=== PATIENT | male | born 1955 | race Caucasian/White ===

== ENCOUNTER 2017-04-17 08:29 | Day surgery (SDC) | payer BC ==
[2017-04-16 10:02] VITALS: BMI 25.8
[~2017-04-17 08:29] MED LIST: LACTATED RINGERS 1,000 ML IV SCH
[2017-04-17 08:47] VITALS: RESP 16
[2017-04-17] MEDS ORDERED: LIDOCAINE 1% 20 ML VIAL (10MG/ML) FOR IV START INTRADERMA ONE (08:58)
[2017-04-17] MEDS ORDERED: LIDOCAINE 1% INJ 10MG/ML (20 ML MDV) ONE (09:01)
[2017-04-17] MEDS ORDERED: PROPOFOL 10 MG/ML 20 ML VIAL IV ONE (09:01)
[2017-04-17 09:06] LABS: Glucose,Whole Blood 115 mg/dL (75-99)
[2017-04-17 09:28] VITALS: BP 130/64
--- NOTE | 2017-04-17 09:37 | P.PCN ---
Date of Procedure: 04/17/17 Preoperative Diagnosis: Postoperative Diagnosis: Procedure(s) Performed: Procedure: Colonoscopy and biopsy. Preoperative diagnosis: Screening for neoplasia. Postoperative diagnosis: 1. Couple diminutive polyps in the distal sigmoid, probably representing hyperplastic polyps, biopsy, but no large polyps or cancer. 2. Sigmoid diverticulosis with no evidence of acute diverticulitis or strictures. Preparation: HalfLytely prep. Sedation: Was provided by anesthesia. Brief clinical history: The patient is a 61-year-old male who is referred for this evaluation for screening for neoplasia. He had a prior exam more than 10 years ago. At this time, he has no abdominal complaints, bleeding or anemia. No family history of colon cancer. Procedure: With the patient on his left lateral decubitus position and after informed consent and adequate sedation, the perianal area was inspected and it did not show any fissures or fistulas. There were no masses felt on digital rectal examination. The Olympus CFQ 160L video colonoscope was then inserted in the rectum in the usual fashion and advanced to the cecum. There were several diverticular orifices seen scattered in the sigmoid with no evidence of acute diverticulitis or strictures. In the distal sigmoid there were 2 diminutive polyps consistent with hyperplastic polyps which I biopsied, but there were no large polyps or cancer. I retroflexed the endoscope in the rectum before the endoscope was withdrawn. The patient tolerated the procedure well. Plan: The patient was reassured. Will await pathology results. Discussed dietary measures. I anticipate repeating this exam in around 5 years. He will follow up with you as planned. Implants: Indications for Procedure: Operative Findings: Description of Procedure:
[2017-04-17 09:50] VITALS: PULSE 50
== END 2017-04-17 10:11 | disposition home or self-care (01) ==
LOC: ORWHC2ENDO 08:29
DX: Z12.11 Encounter for screening for malignant neoplasm of colon (principal); K63.5 Polyp of colon; K57.90 Diverticulosis of intestine, part unspecified, without perforation or abscess without bleeding; I10 Essential (primary) hypertension; E11.9 Type 2 diabetes mellitus without complications; Z79.84 Long term (current) use of oral hypoglycemic drugs; M19.90 Unspecified osteoarthritis, unspecified site; Z79.899 Other long term (current) drug therapy
CPT/HCPCS: 88305; 45380; J2001; J2704

== ENCOUNTER 2020-05-30 10:08 | Emergency (ER) | payer BC, MEDICARE ==
--- NOTE | 2020-05-30 10:13 | ED ---
Allergic Reaction HPI - General Stated complaint: Poss Allergic Reaction Time Seen by Provider: 05/30/20 10:10 - History of Present Illness Initial Comments: Patient is 64-year-old male presenting to emergency department with chief complaint of ALLERGIC reaction. Patient states this is the fourth time this has occurred in the last week. He states today he developed some swelling around the lips and went to his primary care physician where she was administered some Medrol and Benadryl. States the reaction typical starts around his mouth the lips, they swell up. States one time he also had swelling in his eyes. The most recent episode prior to this one, patient had also swelling in his lower abdominal region and groin. He states the symptoms always occur in the morning, either before or after taking his blood pressure medication. States his morning routine is otherwise not changed, he has coffee, takes his medication and eats afterwards. Patient reports she went to see the primary care physician on Friday who prescribed him an EpiPen to use in emergency. The PCP also changed his blood pressure medication. Patient was initially taking losartan with hydrochlorothiazide and amlodipine 5 mg. He was then switched to hydrochlorothiazide only in the amlodipine was increased to 10 mg. However, he continues to have angioedema. He denies any chest pain shortness of breath. - Related Data Home Medications Medication Instructions Recorded Confirmed amLODIPine [Norvasc] 10 mg PO DAILY 05/30/20 05/30/20 hydroCHLOROthiazide [Hydrodiuril] 25 mg PO DAILY 05/30/20 05/30/20 Previous Rx's Medication Instructions Recorded predniSONE 50 mg PO DAILY #5 tab 05/30/20 Allergies Allergy/AdvReac Type Severity Reaction Status Date / Time No Known Allergies Allergy Verified 05/30/20 11:13 Review of Systems ROS Statement: Those systems with pertinent positive or pertinent negative responses have been documented in the HPI. ROS Other: All systems not noted in ROS Statement are negative. Past Medical History Past Medical History: Diabetes Mellitus, Hypertension, Osteoarthritis (OA) History of Any Multi-Drug Resistant Organisms: None Reported Past Surgical History: Orthopedic Surgery Additional Past Surgical History / Comment(s): LEFT HAND SURGERY , HEEL SPURS JASMIN. Past Anesthesia/Blood Transfusion Reactions: No Reported Reaction Past Psychological History: No Psychological Hx Reported Past Alcohol Use History: Daily Additional Past Alcohol Use History / Comment(s): QUIT SMOKING 25 YRS AGO. SMOKED 1 PPD FOR APPROX 20 YEARS. DRINKS 3-4 BEERS DAILY. Past Drug Use History: Marijuana Additional Drug Use History / Comment(s): CURRENT MARIJUANA USE. - Past Family History Mother Family Medical History: No Reported History General Exam Limitations: no limitations General appearance: alert, in no apparent distress Head exam: Present: atraumatic, normocephalic, normal inspection Eye exam: Present: normal appearance, PERRL, EOMI. Absent: scleral icterus, conjunctival injection, nystagmus Pupils: Present: normal accommodation ENT exam: Present: normal exam, normal oropharynx (Mild angioedema on the lower lip and right side of the face.), mucous membranes moist, TM's normal bilaterally, normal external ear exam Neck exam: Present: normal inspection, full ROM. Absent: tenderness Respiratory exam: Present: normal lung sounds bilaterally. Absent: respiratory distress, wheezes Cardiovascular Exam: Present: regular rate, normal rhythm, normal heart sounds GI/Abdominal exam: Present: soft. Absent: distended, tenderness, guarding, rebound Extremities exam: Present: normal inspection, full ROM, normal capillary refill. Absent: tenderness Back exam: Present: normal inspection, full ROM. Absent: tenderness, CVA tenderness (R), CVA tenderness (L) Neurological exam: Present: alert, oriented X3 Psychiatric exam: Present: normal affect, normal mood Skin exam: Present: warm, dry, intact, normal color Course Vital Signs 05/30/20 10:10 Temperature 98.7 F Pulse Rate 78 Respiratory 19 Rate Blood Pressure 111/81 O2 Sat by Pulse 99 Oximetry Medical Decision Making - Medical Decision Making Patient is a 64-year-old male presenting to emergency Department with a chief complaint of an ALLERGIC reaction. On initial evaluation, patient has some angioedema around the lower lip and a right-sided face near the mouth. Patient had his blood pressure medication recently altered which could potentially cause a reaction. On reevaluation, the angioedema around the mouth continues to be improving. Patient agrees. No signs of respiratory comprise. Patient has an appointment scheduled with his primary care in an technical communication teacher as soon as possible. Patient will be discharged with a 5 day course of steroids. Strict return parameters were thoroughly discussed the patient was understanding and agreeable. Case discussed with physician. Disposition Clinical Impression: Allergic reaction, Angioedema Disposition: HOME SELF-CARE Condition: Stable Instructions (If sedation given, give patient instructions): Angioedema (ED) Additional Instructions: Date show medication as directed. Follow with her primary care physician. Return to emergency department if symptoms worsen. Prescriptions: predniSONE 50 mg PO DAILY #5 tab Is patient prescribed a controlled substance at d/c from ED?: No Referrals: Michael Felder MD [Primary Care Provider] - 1-2 days Time of Disposition: 12:12
[2020-05-30 10:18] VITALS: RESP 19; TEMP 98.7
[2020-05-30 12:43] VITALS: BP 108/64; PULSE 71
== END 2020-05-30 12:43 | disposition home or self-care (01) ==
LOC: EC 10:08
DX: T78.3XXA Angioneurotic edema, initial encounter (principal); T50.905A Adverse effect of unspecified drugs, medicaments and biological substances, initial encounter; I10 Essential (primary) hypertension; Z79.899 Other long term (current) drug therapy; Z87.891 Personal history of nicotine dependence
CPT/HCPCS: 99284

== ENCOUNTER → 2020-06-08 | Outpatient (CLI) | payer MEDICARE ==
[2020-06-09 13:55] LABS: Beef IgE 7.24 kU/L (<0.10); Beef IgE Class CLASS 3; Lettuce IgE Class CLASS 0; Pork IgE Class CLASS 2
[2020-06-09 13:56] LABS: Apple IgE Class CLASS 0; Celery IgE <0.10 kU/L (<0.10); Celery IgE Class CLASS 0; Chicken IgE Class CLASS 0; Chocolate IgE Class CLASS 0; Cow's Milk IgE Class CLASS 2; Egg White IgE <0.10 kU/L (<0.10); Peanut IgE <0.10 kU/L (<0.10); Potato IgE <0.10 kU/L (<0.10); Potato IgE Class CLASS 0; Soybean IgE 3.62 kU/L (<0.10)
[2020-06-09 13:57] LABS: Avocado Class CLASS 0; Banana IgE Class CLASS 0; Coffee IgE <0.10 kU/L (<0.10); Coffee IgE Class CLASS 0; Hazelnut IgE <0.10 kU/L (<0.10); Hazelnut IgE Class CLASS 0; Kiwi IgE <0.10 kU/L (<0.10); Kiwi IgE Class CLASS 0
== END | disposition home or self-care (01) ==
LOC: LABWHC1 13:39
PROVIDERS: ATTEND Otolaryngology
DX: L50.0 Allergic urticaria (principal)
CPT/HCPCS: 36415; 86003

== ENCOUNTER 2020-06-10 06:22 | Emergency (ER) | payer MEDICARE ==
[2020-06-10 06:30] VITALS: BP 144/75; PULSE 92; RESP 18; TEMP 98.7
[2020-06-10] MEDS ORDERED: methylPREDNISolone SOD SUCCI 125 MG/2 ML VIAL IM STA (06:40)
[2020-06-10] MEDS ORDERED: diphenhydrAMINE 50 MG/ML 1 ML VIAL IM STA (06:40)
[2020-06-10] MEDS ORDERED: FAMOTIDINE 20 MG TAB PO STA (06:40)
--- NOTE | 2020-06-10 06:45 | ED ---
General Adult HPI - General Chief complaint: Allergic Reaction Stated complaint: Swollen Lips Time Seen by Provider: 06/10/20 06:32 Source: patient, family, RN notes reviewed Mode of arrival: ambulatory Limitations: no limitations - History of Present Illness Initial comments: 64-year-old male presents to the emergency room for a chief complaint of lip swelling. Patient reports that over the past several weeks this has happened 5 times now. Patient has seen his primary care provider for this and started on steroids. He was seen here in the emergency room as well and given shots which helped with his symptoms. 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 Patient states he could feel this coming on last night and took Benadryl. When he woke up this morning it was worse so he took another half tablet of Benadryl about 2 hours ago. Patient denies any swelling of his tongue or throat. He reports these symptoms have never involved tongue or throat. No shortness of breath. Patient is not on lisinopril.Patient has no other complaints at this time including shortness of breath, chest pain, abdominal pain, nausea or vomiting, headache, or visual changes. - Related Data Home Medications Medication Instructions Recorded Confirmed amLODIPine [Norvasc] 10 mg PO DAILY 05/30/20 05/30/20 hydroCHLOROthiazide [Hydrodiuril] 25 mg PO DAILY 05/30/20 05/30/20 Previous Rx's Medication Instructions Recorded predniSONE 50 mg PO DAILY #5 tab 05/30/20 predniSONE 50 mg PO DAILY #3 tablet 06/10/20 Allergies Allergy/AdvReac Type Severity Reaction Status Date / Time No Known Allergies Allergy Verified 06/10/20 06:30 Review of Systems ROS Statement: Those systems with pertinent positive or pertinent negative responses have been documented in the HPI. ROS Other: All systems not noted in ROS Statement are negative. Past Medical History Past Medical History: Diabetes Mellitus, Hypertension, Osteoarthritis (OA) History of Any Multi-Drug Resistant Organisms: None Reported Past Surgical History: Orthopedic Surgery Additional Past Surgical History / Comment(s): LEFT HAND SURGERY , HEEL SPURS JASMIN. Past Anesthesia/Blood Transfusion Reactions: No Reported Reaction Past Psychological History: No Psychological Hx Reported Smoking Status: Never smoker Past Alcohol Use History: Daily Past Drug Use History: Marijuana - Past Family History Mother Family Medical History: No Reported History General Exam Limitations: no limitations General appearance: alert, in no apparent distress Head exam: Present: atraumatic, normocephalic, normal inspection Eye exam: Present: normal appearance, PERRL, EOMI. Absent: scleral icterus, conjunctival injection, periorbital swelling ENT exam: Present: normal exam, mucous membranes moist, normal external ear exam. Absent: normal oropharynx (Patient does have evidence of angioedema of the lips. No swelling of the tongue or throat.) Neck exam: Present: normal inspection, full ROM. Absent: tenderness, meningismus, lymphadenopathy Respiratory exam: Present: normal lung sounds bilaterally. Absent: respiratory distress, wheezes, rales, rhonchi, stridor Cardiovascular Exam: Present: regular rate, normal rhythm, normal heart sounds. Absent: systolic murmur, diastolic murmur, rubs, gallop, clicks GI/Abdominal exam: Present: soft, normal bowel sounds. Absent: distended, tenderness, guarding, rebound, rigid Neurological exam: Present: alert Skin exam: Present: warm, dry, intact, normal color. Absent: rash Course Vital Signs 06/10/20 06:26 Temperature 98.7 F Pulse Rate 92 Respiratory 18 Rate Blood Pressure 144/75 O2 Sat by Pulse 100 Oximetry Medical Decision Making - Medical Decision Making Patient given Solu-Medrol, Benadryl, Pepcid here in the emergency room. He was discharged home on a short course of steroids. He will follow up with his department head [employer] or [employer] and primary care. He will return here for any worsening symptoms. He does have an EpiPen at home. Disposition Clinical Impression: Allergic reaction, Angioedema Disposition: HOME SELF-CARE Condition: Good Instructions (If sedation given, give patient instructions): General Allergic Reaction (ED) Additional Instructions: Please take steroid as directed starting tomorrow. Please follow-up with your primary care doctor and department head [employer] or [employer]. If you have any worsening symptoms or tongue swelling or shortness of breath return immediately to the emergency room. Prescriptions: predniSONE 50 mg PO DAILY #3 tablet Is patient prescribed a controlled substance at d/c from ED?: No Referrals: Michael Felder MD [Primary Care Provider] - 1-2 days Time of Disposition: 06:46
== END 2020-06-10 07:29 | disposition home or self-care (01) ==
LOC: EC 06:22
DX: T78.3XXA Angioneurotic edema, initial encounter (principal); I10 Essential (primary) hypertension; Z79.899 Other long term (current) drug therapy
CPT/HCPCS: 99283; 96372 ×2; J1200; J2930

== ENCOUNTER 2020-09-07 15:58 | Emergency (ER) | payer MEDICARE ==
[2020-09-07 16:13] VITALS: BP 161/76; PULSE 100; TEMP 98.3
[2020-09-07] MEDS ORDERED: methylPREDNISolone SOD SUCCI 125 MG/2 ML VIAL IM ONE (16:29)
[2020-09-07] MEDS ORDERED: FAMOTIDINE 20 MG TAB PO STA (16:30)
[2020-09-07] MEDS ORDERED: diphenhydrAMINE 50 MG/ML 1 ML VIAL IM STA (16:30)
[2020-09-07 16:35] VITALS: RESP 18
--- NOTE | 2020-09-07 16:36 | ED ---
General Adult HPI - General Chief complaint: Allergic Reaction Stated complaint: allergies issues Time Seen by Provider: 09/07/20 16:14 Source: patient, RN notes reviewed Mode of arrival: ambulatory Limitations: no limitations - History of Present Illness Initial comments: 65-year-old male with a past medical history of hypertension presents to the emergency room for a chief complaint of ALLERGIC reaction. Today patient woke up with swelling around the left eye. He denies any swelling of his lips tongue or throat. He states that he took Benadryl twice today with the last dose being 9 AM or approximately 7 hours prior to arrival. He states swelling has been persistent but is not seeming to worsen. Patient reports he has had ALLERGIC reactions on and off for the past few months. States he has seen primary care and french tutor for this. Patient is ALLERGIC to milk, soy, red meats, and corn. States he may have eaten one of these as it is very hard to avoid everything.Patient has no other complaints at this time including shortness of breath, chest pain, abdominal pain, nausea or vomiting, headache, or visual changes. - Related Data Home Medications Medication Instructions Recorded Confirmed amLODIPine [Norvasc] 10 mg PO DAILY 05/30/20 05/30/20 hydroCHLOROthiazide [Hydrodiuril] 25 mg PO DAILY 05/30/20 05/30/20 Previous Rx's Medication Instructions Recorded predniSONE 50 mg PO DAILY #5 tab 05/30/20 predniSONE 50 mg PO DAILY #3 tablet 06/10/20 Famotidine [Pepcid] 20 mg PO DAILY #30 tablet 09/07/20 predniSONE 50 mg PO DAILY #4 tablet 09/07/20 Allergies Allergy/AdvReac Type Severity Reaction Status Date / Time No Known Allergies Allergy Verified 09/07/20 16:13 Review of Systems ROS Statement: Those systems with pertinent positive or pertinent negative responses have been documented in the HPI. ROS Other: All systems not noted in ROS Statement are negative. Past Medical History Past Medical History: Hypertension, Osteoarthritis (OA) History of Any Multi-Drug Resistant Organisms: None Reported Past Surgical History: Orthopedic Surgery Additional Past Surgical History / Comment(s): LEFT HAND SURGERY , HEEL SPURS JASMIN. Past Anesthesia/Blood Transfusion Reactions: No Reported Reaction Past Psychological History: No Psychological Hx Reported Smoking Status: Never smoker Past Alcohol Use History: Daily Past Drug Use History: Marijuana - Past Family History Mother Family Medical History: No Reported History General Exam Limitations: no limitations General appearance: alert Head exam: Present: atraumatic Eye exam: Present: PERRL, EOMI, periorbital swelling (Minimal left-sided periorbital edema). Absent: scleral icterus, conjunctival injection, periorbital tenderness ENT exam: Present: normal exam, normal oropharynx (No swelling of the lips tongue or throat), mucous membranes moist Neck exam: Present: normal inspection, full ROM. Absent: tenderness, meningismus, lymphadenopathy Respiratory exam: Present: normal lung sounds bilaterally. Absent: respiratory distress, wheezes Cardiovascular Exam: Present: regular rate, normal rhythm, normal heart sounds GI/Abdominal exam: Present: soft, normal bowel sounds. Absent: distended, tenderness, guarding, rebound, rigid Skin exam: Present: warm, dry, intact, normal color. Absent: rash Course Vital Signs 09/07/20 16:10 Temperature 98.3 F Pulse Rate 100 Respiratory 20 Rate Blood Pressure 161/76 O2 Sat by Pulse 99 Oximetry Medical Decision Making - Medical Decision Making Patient has been having these symptoms for months intermittently. No sling of the lips tongue or throat or shortness of breath. Patient was given IM Solu- Medrol and Benadryl as well as by mouth Pepcid. He will be discharged on a five-day course of steroids. He will follow up with his primary care physician. He will return here for any worsening symptoms. Patient does have an EpiPen at home that he can use if he developed any swelling of the throat or difficulty breathing. He is also aware to return if there are any worsening symptoms. I discussed this case with attending Dr. Regan who agrees with this assessment and treatment plan. Disposition Clinical Impression: Allergic reaction Disposition: HOME SELF-CARE Condition: Good Additional Instructions: Please take steroid as directed. He may take this starting tomorrow as he were given a dose in the emergency room. Take Pepcid as well as Benadryl. You may take Benadryl every [address] taking this. Return to the emergency room for any worsening symptoms or difficulty breathing. Follow-up with your doctor for referral to healthcare project manager or dietitian to help with your food allergies. Prescriptions: Famotidine [Pepcid] 20 mg PO DAILY #30 tablet predniSONE 50 mg PO DAILY #4 tablet Is patient prescribed a controlled substance at d/c from ED?: No Referrals: Michael Felder MD [Primary Care Provider] - 1-2 days Time of Disposition: 16:34
== END 2020-09-07 17:35 | disposition home or self-care (01) ==
LOC: EC 15:58
DX: T78.40XA Allergy, unspecified, initial encounter (principal); I10 Essential (primary) hypertension; Z79.899 Other long term (current) drug therapy; Z91.011 Allergy to milk products; Z91.048 Other nonmedicinal substance allergy status
CPT/HCPCS: 99283 ×2; 96372 ×3; J1200; J2930

== ENCOUNTER 2021-03-21 15:28 | Emergency (ER) | payer MEDICARE ==
[2021-03-21 15:44] VITALS: TEMP 98.5
[2021-03-21] MEDS ORDERED: predniSONE 20 MG TAB PO STA (16:34)
[2021-03-21] MEDS ORDERED: FAMOTIDINE 20 MG TAB PO STA (16:34)
--- NOTE | 2021-03-21 16:37 | ED ---
Allergic Reaction HPI - General Chief complaint: Allergic Reaction Stated complaint: bee sting Time Seen by Provider: 03/21/21 15:40 Source: patient Mode of arrival: ambulatory Limitations: no limitations - History of Present Illness Initial Comments: 65-year-old male with past medical history of hypertension presents emergency department after he was stung by 3 bees. He states he was in his backyard when he was stung on his right forearm, right hand and right side of face. Patient does admit to significant reactions in the past. He had immediate swelling. Denies any chest pain or shortness of breath. He did take 25 mg of Benadryl at home before coming into the emergency department. He denies anaphylactic reaction to bees. No nausea or vomiting. No other alleviating, precipitating or modifying factors - Related Data Home Medications Medication Instructions Recorded Confirmed amLODIPine [Norvasc] 10 mg PO DAILY 05/30/20 05/30/20 hydroCHLOROthiazide [Hydrodiuril] 25 mg PO DAILY 05/30/20 05/30/20 Previous Rx's Medication Instructions Recorded predniSONE 50 mg PO DAILY #5 tab 05/30/20 predniSONE 50 mg PO DAILY #3 tablet 06/10/20 Famotidine [Pepcid] 20 mg PO DAILY #30 tablet 09/07/20 predniSONE 50 mg PO DAILY #4 tablet 09/07/20 Famotidine [Pepcid] 20 mg PO DAILY #5 tablet 03/21/21 predniSONE [Deltasone] 20 mg PO BID #10 tab 03/21/21 Allergies Allergy/AdvReac Type Severity Reaction Status Date / Time bee pollen Allergy Rash/Hives Verified 03/21/21 15:44 bee venom protein (honey bee) Allergy Rash/Hives Verified 03/21/21 15:44 Review of Systems ROS Statement: Those systems with pertinent positive or pertinent negative responses have been documented in the HPI. ROS Other: All systems not noted in ROS Statement are negative. Past Medical History Past Medical History: Hypertension, Osteoarthritis (OA) History of Any Multi-Drug Resistant Organisms: None Reported Past Surgical History: Orthopedic Surgery Additional Past Surgical History / Comment(s): LEFT HAND SURGERY , HEEL SPURS JASMIN. Past Anesthesia/Blood Transfusion Reactions: No Reported Reaction Past Psychological History: No Psychological Hx Reported Smoking Status: Never smoker Past Alcohol Use History: Daily Past Drug Use History: Marijuana - Past Family History Mother Family Medical History: No Reported History General Exam Limitations: no limitations General appearance: alert, in no apparent distress Head exam: Present: atraumatic, normocephalic, normal inspection Eye exam: Present: normal appearance, PERRL, EOMI. Absent: scleral icterus, conjunctival injection, periorbital swelling ENT exam: Present: normal exam, mucous membranes moist, other (no oral swelling) Neck exam: Present: normal inspection. Absent: tenderness, meningismus, lymphadenopathy Respiratory exam: Present: normal lung sounds bilaterally. Absent: respiratory distress, wheezes, rales, rhonchi, stridor Cardiovascular Exam: Present: regular rate, normal rhythm, normal heart sounds. Absent: systolic murmur, diastolic murmur, rubs, gallop, clicks GI/Abdominal exam: Present: soft, normal bowel sounds. Absent: distended, tenderness, guarding, rebound, rigid Extremities exam: Present: normal inspection, full ROM, normal capillary refill. Absent: tenderness, pedal edema, joint swelling, calf tenderness Back exam: Present: normal inspection Neurological exam: Present: alert, oriented X3, CN II-XII intact Psychiatric exam: Present: normal affect, normal mood Skin exam: Present: warm, dry, intact, other (mild edema right face, right forearm, right dorsal hand. No retained stinger). Absent: rash Course Vital Signs 03/21/21 03/21/21 15:40 16:57 Temperature 98.5 F Pulse Rate 80 75 Respiratory 17 18 Rate Blood Pressure 143/83 125/78 O2 Sat by Pulse 98 99 Oximetry Medical Decision Making - Medical Decision Making Upon arrival patient is placed in room 17. A thorough history and physical exam is performed. Patient was given 60 mg of prednisone, 20 mg of Pepcid. Patient will be discharged home on 5 days worth of prednisone and famotidine. He is to take Benadryl every 6 hours. Return to the emergency room for any new or worsening symptoms. Patient does have EpiPen at home from previous ALLERGIC reactions to dog dander. Patient was discharged in stable condition Disposition Clinical Impression: Hymenoptera reaction Disposition: HOME SELF-CARE Condition: Stable Instructions (If sedation given, give patient instructions): Insect Bite or Sting (ED) Additional Instructions: You can take one benadryl 25 mg every 6 hours. Return to the ED for any new or worsening symptoms. Prescriptions: predniSONE [Deltasone] 20 mg PO BID #10 tab Famotidine [Pepcid] 20 mg PO DAILY #5 tablet Is patient prescribed a controlled substance at d/c from ED?: No Referrals: Michael Felder MD [Primary Care Provider] - 1-2 days Time of Disposition: 16:37
[2021-03-21 16:58] VITALS: BP 125/78; PULSE 75; RESP 18
== END 2021-03-21 16:58 | disposition home or self-care (01) ==
LOC: EC 15:28
DX: T63.441A Toxic effect of venom of bees, accidental (unintentional), initial encounter (principal); I10 Essential (primary) hypertension; Z79.899 Other long term (current) drug therapy; Z91.030 Bee allergy status
CPT/HCPCS: 99282; J7512

== ENCOUNTER → 2022-01-04 | Outpatient (CLI) | payer MEDICARE ==
--- NOTE | 2022-01-04 10:46 | US ---
EXAMINATION TYPE: US duplex aorta DATE OF EXAM: 01/04/2022 COMPARISON: NONE CLINICAL HISTORY: Z13.6 SCREENING FOR CARDIOVASCULAR DISORDERS. screening EXAM MEASUREMENTS: Abdominal Aorta: Proximal: 2.4 x 2.0cm Mid: 1.8 x 1.8cm Distal: 2.0 x 1.8cm Bifurcation: RT: 1.0 x 0.8cm LT: 0.9 x 0.8cm Calcifications noted throughout. no evidence of AAA at this time IMPRESSION: No evidence for abdominal aortic aneurysm.
== END | disposition home or self-care (01) ==
LOC: RADUSWWP 10:14
PROVIDERS: ATTEND Family Medicine
DX: Z13.6 Encounter for screening for cardiovascular disorders (principal)
CPT/HCPCS: 93979

== ENCOUNTER 2023-02-07 12:08 | Day surgery (SDC) | payer MEDICARE ==
[2023-02-05 14:31] VITALS: BMI 25.0
[~2023-02-07 12:08] MED LIST changes: +LIDOCAINE 1% (10MG/ML) FOR IV START INTRADERMA PRN
[2023-02-07 12:50] VITALS: RESP 16; TEMP 97.4
[2023-02-07] MEDS ORDERED: LIDOCAINE 2% INJ 20 MG/ML (2 ML VIAL) ONE (14:06)
[2023-02-07] MEDS ORDERED: PROPOFOL 10 MG/ML 20 ML VIAL IV ONE (14:06)
--- NOTE | 2023-02-07 14:24 | P.PCN ---
Date of Procedure: 02/07/23 Procedure(s) Performed: BRIEF HISTORY: Patient is a 67-year-old pleasant white male scheduled for an elective colonoscopy as a part of evaluation of prior history of colon polyps. Last colonoscopy was 8 years ago. PROCEDURE PERFORMED: Colonoscopy snare polypectomy. PREOPERATIVE DIAGNOSIS: History of colon polyps. IV sedation per Anesthesia. PROCEDURE: After informed consent was obtained, the patient, was brought into the endoscopy unit. IV sedation was administered by Anesthesia under continuous monitoring. Digital rectal examination was normal. Initially the Olympus CF-160 flexible video colonoscope was then inserted in the rectum, gradually advanced into the cecum without any difficulty. Careful examination was performed as the scope was gradually being withdrawn. Ileocecal valve and the appendiceal orifice were visualized and appeared normal. Prep was excellent. Mucosa of the cecum, normal. Ascending colon there was a 7 mm sessile polyp removed by snare polypectomy. Rest of the ascending colon, transverse colon, descending colon, sigmoid colon, and rectum appeared normal. Scattered sigmoid diverticulosis. Retroflexion was performed in the rectum and no lesions were seen. The patient tolerated the procedure well. IMPRESSION: 7 mm ascending colon polyp status post polypectomy Scattered sigmoid diverticulosis RECOMMENDATIONS: Findings of this examination were discussed with the patient as well as his family.He was advised to follow with the biopsy results. If the biopsy results and he will have a repeat colonoscopy in 5 years.
[2023-02-07 14:51] VITALS: BP 132/74; PULSE 70
== END 2023-02-07 15:09 | disposition home or self-care (01) ==
LOC: ORWHC2ENDO 12:08
PROVIDERS: ATTEND Internal Medicine Gastroenterology
DX: Z12.11 Encounter for screening for malignant neoplasm of colon (principal); D12.2 Benign neoplasm of ascending colon; K57.30 Diverticulosis of large intestine without perforation or abscess without bleeding; I10 Essential (primary) hypertension; F17.200 Nicotine dependence, unspecified, uncomplicated; Z86.010 Personal history of colon polyps; Z91.030 Bee allergy status; Z79.899 Other long term (current) drug therapy
CPT/HCPCS: 88305; 45385; J2704; J2001

== ENCOUNTER 2024-02-25 10:03 | Day surgery (SDC) | payer MEDICARE ==
[2024-02-24 08:37] VITALS: BMI 25.8
[~2024-02-25 10:03] MED LIST changes: -LACTATED RINGERS 1,000 ML IV SCH; +TETRACAINE 0.5% OPHTH (PF) DROPS 4 ML BTL OP PRN
[2024-02-25] MEDS: LACTATED RINGERS 1,000 ML IV ONE (10:26)
[2024-02-25] MEDS: CYCLOPENTOLATE 1% OPHTH SOLN 2 ML BTL OP PRN (10:35)
[2024-02-25] MEDS: PHENYLEPHRINE 2.5% OPHTH DRP 2ML OP PRN (10:38)
[2024-02-25] MEDS: LACTATED RINGERS 1,000 ML IV SCH (10:54)
[2024-02-25 11:04] VITALS: TEMP 97.8
[2024-02-25] MEDS ORDERED: fentaNYL (PF) 50 MCG/ML 2 ML AMP ONE (13:13)
[2024-02-25] MEDS ORDERED: MIDAZOLAM 2 MG/2 ML VIAL ONE (13:13)
[2024-02-25] MEDS: EPINEPHrine (PF) 0.3 ML in BALANCED SALT IRRIG SOLN COMB2 500 ML IRRIGATION ONE (13:28)
[2024-02-25] MEDS: TIMOLOL 0.5% OPHTH DROPS 5 ML BTL OP PRN (13:30)
[2024-02-25] MEDS: MOXIFLOXACIN HCL 0.5% DROPS 3 ML BTL OP PRN (13:30)
[2024-02-25] MEDS: BALANCED SALT IRRIG SOLN COMB2 15 ML IRRIG.SOLN INTRAOCULA ONE (13:33)
[2024-02-25] MEDS: DUOVISC KIT (GREEN BOX) INTRAOCULA ONE (13:33)
[2024-02-25] MEDS: EPINEPHrine (PF) 1 MG/ML AMP MISCELLANE ONE (13:34)
[2024-02-25] MEDS: LIDOCAINE 1% (PF) 10MG/ML VIAL MISCELLANE ONE (13:34)
[2024-02-25] MEDS: TRYPAN BLUE 0.06% SYRINGE 0.5 ML SYRINGE INTRAOCULA ONE (13:34)
--- NOTE | 2024-02-25 13:56 | P.OP ---
Date of Procedure: 02/25/24 Preoperative Diagnosis: NS & CS & POAG mild Postoperative Diagnosis: same Procedure(s) Performed: PIOL & Hydrus implantation Implants: MX60E 23.00 & Hydrus stent Anesthesia: MAC Surgeon: Keny Boykin Pathology: none sent Condition: stable Disposition: same day Indications for Procedure: blurry vision and glaucoma control Operative Findings: no complications
[2024-02-25 14:25] VITALS: BP 151/73; PULSE 73; RESP 18
--- NOTE | 2024-02-26 20:52 | OP ---
OPERATIVE REPORT DATE OF SERVICE : 02/25/2024 PROCEDURE PERFORMED: Phacoemulsification of cataract and intraocular lens implant of the left eye with a Hydrus stent implant. PREOPERATIVE DIAGNOSES: Nuclear sclerosis, cortical sclerosis, and primary open-angle glaucoma mild stage. ANESTHESIA: Topical. ESTIMATED BLOOD LOSS: Less than 5 mL. SPECIMEN TAKEN: None. NARRATIVE: After obtaining the appropriate consent, the patient was brought to the operating room. There he was placed under cardiac monitoring and prepped and draped in the usual sterile manner. He was approached from his left temporal side and at the 5 o'clock position an MVR blade was used to create a paracentesis port. Through this opening, 1% Xylocaine MPF 50:50 mix with balanced salt solution was injected into the anterior chamber. This was followed on with Trypan blue which was allowed to dwell in the eye for about 90 seconds. This was irrigated away with balanced salt solution and Viscoat was then used to stabilize the anterior chamber. At the 3 o'clock position, a 2.5 mm keratome was used to create a self-sealing corneal flap incision. A gonioprism was placed on the patient's eye and the patient was asked to rotate his head approximately 45 degrees to his right, maintaining a gaze in that general direction. An additional paracentesis which was placed tangentially at about the 6:30 position on the eye, was used to advance the Hydrus stent implantation instrument across the anterior chamber up to the nasal trabecular meshwork. Using the tip of the instrument, a small slit was placed in the trabecular meshwork and the Hydrus stent device was then advanced within the trabecular meshwork to its fullest extent and the trailing portion of the device was released and advanced slightly further into the trabecular meshwork, so only a small portion of the device remained exposed to the anterior chamber. The installing device was then removed from the anterior chamber and the patient was rotated back to the normal supine position. It was appreciated at this stage that there was some reflux of blood from the anterior angle as would typically be expected through the 3 o'clock position a cystotome was introduced to begin a continuous tear capsulorrhexis which was then completed using the Utrata forceps. Hydrodissection and hydrodelineation of the lens were accomplished with balanced salt solution. Phacoemulsification of the lens utilizing phaco chop was accomplished in 8.66 seconds at 14.7% power. Additional Xylocaine MPF was used to provide additional anesthesia to the anterior chamber and the remaining cortical material was removed from in and around the capsular bag as well as careful polishing of the posterior capsule in the capsule vacuum mode. A [employer]ch [employer] MX60E 23.0 diopter posterior chamber intraocular lens was then placed into the capsular bag without difficulty and all remaining viscoelastic was removed from in and around the intraocular lens as well as additional irrigation to remove the accumulating blood in the front chamber of the eye due to the implantation of the Hydrus stent. The eye was then brought to above normal intra-ocular pressure by a few mm to tamponade the ongoing bleeding process. All wounds were confirmed watertight. He then received 2 drops of 0.5% timolol followed by 2 drops of 0.5% moxifloxacin and was then lightly patched and shielded in the usual manner. There were no complications from the procedure. He tolerated the procedure well and was returned to outpatient recovery in good condition. MMCHAD / PRETTYN: [id number] /
== END 2024-02-25 14:23 | disposition home or self-care (01) ==
LOC: OR 10:03
PROVIDERS: ATTEND Ophthalmology
DX: H25.013 Cortical age-related cataract, bilateral (principal); H25.13 Age-related nuclear cataract, bilateral; H40.1131 Primary open-angle glaucoma, bilateral, mild stage; H47.393 Other disorders of optic disc, bilateral; H52.03 Hypermetropia, bilateral; H52.4 Presbyopia; Z83.518 Family history of other specified eye disorder; I10 Essential (primary) hypertension; Z91.030 Bee allergy status; Z91.09 Other allergy status, other than to drugs and biological substances; Z87.891 Personal history of nicotine dependence; Z79.899 Other long term (current) drug therapy
CPT/HCPCS: 66991; C1783; C1780; J2250; J0171; J3010; J2001

== ENCOUNTER 2024-03-10 08:38 | Day surgery (SDC) | payer MEDICARE ==
[2024-03-08 13:45] VITALS: BMI 26.1
[~2024-03-10 08:38] MED LIST changes: -LIDOCAINE 1% (10MG/ML) FOR IV START INTRADERMA PRN
[2024-03-10] MEDS: CYCLOPENTOLATE 1% OPHTH SOLN 2 ML BTL OP PRN (09:02)
[2024-03-10] MEDS: PHENYLEPHRINE 2.5% OPHTH DRP 2ML OP PRN (09:05)
[2024-03-10 09:08] VITALS: TEMP 97.6
[2024-03-10] MEDS: IV FLUID CONTINUATION 1,000 ML IV ONE (09:18)
[2024-03-10] MEDS: LACTATED RINGERS 1,000 ML IV SCH (09:19)
[2024-03-10 09:21] LABS: Glucose,Whole Blood 140 mg/dL (70-110)
[2024-03-10] MEDS ORDERED: MIDAZOLAM 2 MG/2 ML VIAL ONE (10:19)
[2024-03-10] MEDS ORDERED: fentaNYL (PF) 50 MCG/ML 2 ML AMP ONE (10:19)
[2024-03-10] MEDS: DUOVISC KIT (GREEN BOX) INTRAOCULA ONE (10:33)
[2024-03-10] MEDS: BALANCED SALT IRRIG SOLN COMB2 15 ML IRRIG.SOLN INTRAOCULA ONE (10:33)
[2024-03-10] MEDS: LIDOCAINE 1% (PF) 10MG/ML VIAL MISCELLANE ONE (10:34)
[2024-03-10] MEDS: EPINEPHrine (PF) 1 MG/ML AMP MISCELLANE ONE (10:34)
[2024-03-10] MEDS: TRYPAN BLUE 0.06% SYRINGE 0.5 ML SYRINGE INTRAOCULA ONE (10:34)
[2024-03-10] MEDS: EPINEPHrine (PF) 0.3 ML in BALANCED SALT IRRIG SOLN COMB2 500 ML IRRIGATION ONE (10:35)
[2024-03-10] MEDS: MOXIFLOXACIN HCL 0.5% DROPS 3 ML BTL OP PRN (10:36)
[2024-03-10] MEDS: TIMOLOL 0.5% OPHTH DROPS 5 ML BTL OP PRN (10:36)
--- NOTE | 2024-03-10 11:03 | P.OP ---
Date of Procedure: 03/10/24 Preoperative Diagnosis: NS & CS & POAG mild Postoperative Diagnosis: same Procedure(s) Performed: PIOL & Hydrus implant OD Implants: [id number] 23.00 & Hydrus Stent Anesthesia: MAC Surgeon: Keny Boykin Pathology: none sent Condition: stable Disposition: same day Indications for Procedure: blurry and glaucoma control Operative Findings: no complications
[2024-03-10 11:27] VITALS: BP 160/84; PULSE 70; RESP 18
--- NOTE | 2024-03-11 10:43 | OP ---
OPERATIVE REPORT DATE OF SERVICE : 03/10/2024 PROCEDURE: Phacoemulsification of cataract and intraocular lens implant of the right eye with a Hydrus stent implantation of the right eye. PREOPERATIVE DIAGNOSES: Nuclear sclerosis, cortical sclerosis, and primary open-angle glaucoma, mild stage. POSTOPERATIVE DIAGNOSES: Nuclear sclerosis, cortical sclerosis, and primary open-angle glaucoma, mild stage. ANESTHESIA: Topical. ESTIMATED BLOOD LOSS: None. SPECIMEN TAKEN: None. NARRATIVE: After obtaining the appropriate consent, the patient was brought to the operating room, there he was placed under cardiac monitoring, prepped and draped in the usual sterile manner. He was approached from his right temporal side and at the 11 o'clock position, a paracentesis was created using an MVR blade followed by a more tangential paracentesis inferiorly at approximately 8 o'clock using the MVR blade as well. 1% lidocaine MPF 50:50 mix with balanced salt solution was then injected into the anterior chamber through one of the paracenteses. This was followed by trypan blue, which was allowed to dwell in the eye for approximately 90 seconds. This was irrigated away with balanced salt solution and the anterior chamber was then stabilized with Viscoat. At the 9 o'clock position, a 2.5 mm keratome was used to create a self-sealing corneal flap incision. At this point, the patient was then asked to rotate his head toward his left approximately 45 degrees and a gonioprism was placed on the patient's eye. A Hydrus stent was then advanced through the inferior paracentesis and was then inserted into the nasal Schlemm's canal advancing the device to its fullest extent without any difficulty into the drainage system of the eye. Minimal amount of blood was noted after insertion as one would expect. The patient was then rotated back to the normal supine position and a cystotome was introduced to begin a continuous tear capsulorrhexis, which was then completed using the Utrata forceps. Hydrodissection and hydrodelineation of the lens were accomplished with balanced salt solution. Phacoemulsification of the lens utilizing phaco chop was accomplished in 10.15 seconds at 15.7% power. Additional Xylocaine MPF was instilled into the anterior chamber. This was followed by removal of the remaining cortical material under irrigation and aspiration as well as careful polishing of the posterior capsule in capsule vacuum mode. Provisc was then used to stabilize the capsular bag and a Bausch [employer] Lomb MX60E 23.0 diopter posterior chamber intraocular lens was then inserted into the capsular bag without difficulty. The remaining viscoelastic was then removed from in and around the intraocular lens as well as the anterior chamber. The wounds were hydrated slightly and the eye was brought to slightly above intra-ocular pressure to tamponade any additional bleeding that may occur after surgery. He then received 2 drops of 0.5% timolol followed by 2 drops of 0.5% moxifloxacin. He was then lightly patched and shielded in the usual manner. There were no complications from the procedure. He tolerated the procedure well and was returned to outpatient recovery in good condition. MMCHAD / PRETTYN: [id number] /
== END 2024-03-10 11:47 | disposition home or self-care (01) ==
LOC: OR 08:38
PROVIDERS: ATTEND Ophthalmology
DX: H25.11 Age-related nuclear cataract, right eye (principal); I10 Essential (primary) hypertension; M19.90 Unspecified osteoarthritis, unspecified site; H91.90 Unspecified hearing loss, unspecified ear; F12.90 Cannabis use, unspecified, uncomplicated; Z91.048 Other nonmedicinal substance allergy status; Z79.899 Other long term (current) drug therapy
CPT/HCPCS: 66991; C1780; J2250; J0171; J3010; J2001

== ENCOUNTER → 2024-08-20 | Outpatient (CLI) | payer MEDICARE ==
--- NOTE | 2024-08-20 16:44 | CA ---
Transthoracic Echo Report Name: Sukhjinder Brandt Age: 69 Gender: M : 1955 Exam Date: 08/20/2024 14:01 Exam Location: [facility] Ht (in): 67 Wt (lb): 161 Ordering Physician: Michael Felder MD Attending/Referring Phys: Monika Tracey [facility] Local Delivery Driver Meliza Weeks RDCS Procedure CPT: Indications: I10 Essential Hypertension Cardiac Hx: Technical Quality: Fair Contrast 1: Total Dose (mL): Contrast 2: Total Dose (mL): MEASUREMENTS (Male / Female) Normal Values 2D ECHO LV Diastolic Diameter PLAX 4.7 cm 4.2 - 5.9 / 3.9 - 5.3 cm LV Systolic Diameter PLAX 3.3 cm IVS Diastolic Thickness 1.1 cm 0.6 - 1.0 / 0.6 - 0.9 cm LVPW Diastolic Thickness 1.1 cm 0.6 - 1.0 / 0.6 - 0.9 cm LV Relative Wall Thickness 0.5 RV Internal Dim ED PLAX 2.1 cm LA Systolic Diameter LX 3.5 cm 3.0 - 4.0 / 2.7 - 3.8 cm LV Diastolic Volume MOD BP 51.6 cm??? 67 - 155 / 56 - 104 cm??? LV Systolic Volume MOD BP 22.2 cm??? 22 - 58 / 19 - 49 cm??? LV Ejection Fraction MOD BP 56.9 % >= 55 % LV Cardiac Index MOD BP 1287.4 cm???/min???m??? LV Diastolic Volume MOD 4C 46.3 cm??? LV Systolic Volume MOD 4C 20.0 cm??? LV Ejection Fraction MOD 4C 56.9 % LV Cardiac Index MOD 4C 1156.8 cm???/min???m??? LV Diastolic Length 4C 6.7 cm LV Systolic Length 4C 5.3 cm LV Diastolic Volume MOD 2C 55.9 cm??? LV Systolic Volume MOD 2C 23.0 cm??? LV Ejection Fraction MOD 2C 58.9 % LV Cardiac Index MOD 2C 1443.6 cm???/min???m??? LV Diastolic Length 2C 6.9 cm LV Systolic Length 2C 5.8 cm LA Volume 35.2 cm??? 18 - 58 / 22 - 52 cm??? LA Volume Index 18.8 cm???/m??? 16 - 28 cm???/m??? M-MODE Aortic Root Diameter MM 3.2 cm LA Systolic Diameter MM 2.5 cm LA Ao Ratio MM 0.8 AV Cusp Separation MM 1.6 cm DOPPLER MV Area PHT 2.8 cm??? Mitral E Point Velocity 54.5 cm/s Mitral A Point Velocity 90.1 cm/s Mitral E to A Ratio 0.6 MV Deceleration Time 267.4 ms TR Peak Velocity 157.7 cm/s TR Peak Gradient 10.0 mmHg FINDINGS Left Ventricle Left ventricular ejection fraction is estimated at 55-60%. Mildly increased septal wall thickness. Normal left ventricular systolic function with no obvious regional wall motion abnormalities. Left ventricular cavity size normal. Right Ventricle Normal right ventricular size and function. Right ventricular systolic pressure within normal limits. Right Atrium Normal right atrial size. Left Atrium Normal left atrial size. Mitral Valve Structurally normal mitral valve. Trace mitral regurgitation. No mitral stenosis. Aortic Valve Trileaflet aortic valve. No aortic valve stenosis or regurgitation. Tricuspid Valve Structurally normal tricuspid valve. No tricuspid stenosis. Trace tricuspid regurgitation. Pulmonic Valve Structurally normal pulmonic valve. Trace pulmonic regurgitation. No pulmonic stenosis. Pericardium No pericardial or pleural effusion. Aorta Normal size aortic root and proximal ascending aorta. CONCLUSIONS Normal LV systolic function Previewed by: Dr. Carter Lion MD (Electronically Signed) Final Date: 20 August 2024 16:43
== END | disposition home or self-care (01) ==
LOC: RADECHMAIN 13:40
PROVIDERS: ATTEND Family Medicine
DX: I10 Essential (primary) hypertension (principal); I37.1 Nonrheumatic pulmonary valve insufficiency; I07.1 Rheumatic tricuspid insufficiency
CPT/HCPCS: 93306